=== PATIENT | male | born 1940 | race Caucasian/White ===

== ENCOUNTER 2019-03-10 19:27 | Emergency (ER) | payer MEDICARE, BC ==
[2019-03-10] MEDS: ALBUTEROL 0.083% (NEB) 2.5 MG/3 ML AMP HHN (22:24)
[2019-03-10] MEDS: IPRATROPIUM (NEB) 0.5 MG/2.5 ML AMP INH (22:24)
[2019-03-10 22:25] LABS: ADD MAN DIFF? NO
[2019-03-10 22:38] LABS: WHITE BLOOD COUNT 7.9 10^3/ul (4.8-10.8)
[2019-03-10 22:38] LABS: BASOPHILS % 0.4 % (0.0-2.0); EOSINOPHILS # 0.2 10^3/ul (0.0-0.5); HEMATOCRIT 39.7 % (42.0-52.0); HEMOGLOBIN 13.2 g/dl (14.0-18.0); LYMPHOCYTES # 1.5 10^3/ul (0.8-2.9); LYMPHOCYTES % 19.4 % (15.0-51.0); MEAN CORPUSCULAR HGB CONC 33.2 g/dl (32.0-37.0); MEAN CORPUSCULAR VOLUME 90.2 fl (82.0-101.0); MEAN PLATELET VOLUME 9.1 fl (7.4-10.4); MONOCYTE # 0.5 10^3/ul (0.3-0.9); MONOCYTES % 6.7 % (0.0-11.0); NEUTROPHIL # 5.6 10^3/ul (1.6-7.5); NEUTROPHILS % 70.7 % (39.0-77.0); PLATELET COUNT 206 10^3/UL (140-415); RED CELL DISTRIBUTION WIDTH 13.4 % (11.5-14.5)
[2019-03-10 23:00] LABS: ALANINE AMINOTRANSFERASE 42 IU/L (13-69); ALBUMIN 3.8 g/dl (3.3-4.9); ALBUMIN/GLOBULIN RATIO 1.11; ALKALINE PHOSPHATASE 78 IU/L (42-121); ANION GAP 6 (5-13); ASPARTATE AMINO TRANSFERASE 31 IU/L (15-46); BILIRUBIN,INDIRECT 0.3 mg/dl (0-1.1); BILIRUBIN,TOTAL 0.3 mg/dl (0.2-1.3); BLOOD UREA NITROGEN 19 mg/dl (7-20); CALCIUM 9.4 mg/dl (8.4-10.2); CARBON DIOXIDE 28 mmol/L (21-31); CHLORIDE 105 mmol/L (97-110); CREATININE 1.08 mg/dl (0.61-1.24); GLUCOSE 106 mg/dl (70-220); POTASSIUM 4.5 mmol/L (3.5-5.1); SODIUM 139 mmol/L (135-144); TOTAL PROTEIN 7.2 g/dl (6.1-8.1)
[2019-03-10 23:10] LABS: B-TYPE NATRIURETIC PEPTIDE 275 PG/ML (0-450); TROPONIN-I < 0.012 ng/ml (0.000-0.120)
[2019-03-11 00:20] LABS: LACTIC ACID 0.8 mmol/L (0.5-2.0)
== END 2019-03-11 00:48 | disposition home or self-care (01) ==
LOC: E/R 03-11 00:48
DX: R05 Cough (principal); R06.02 Shortness of breath; Z79.82 Long term (current) use of aspirin
CPT/HCPCS: 36415; 71045; 80053; 83605; 83880; 84484; 85025; 87040-91; 87400; 93005; 94664; 99285-25